=== PATIENT | female | born 1995 | race Two or more races ===

== ENCOUNTER 2024-02-05 18:58 | Emergency (ER) | payer OTHER ==
[~2024-02-05] VITALS: Ht 162.6 cm; Wt 75.0 kg
[2024-02-05 19:07] VITALS: O2SAT 96
[2024-02-05] MEDS ORDERED: BROM118S47 PO (20:48)
[2024-02-05] MEDS ORDERED: NAPR-1164 MT (20:48)
[2024-02-05] MEDS ORDERED: DEXA2TAB MT (20:48)
[2024-02-05] MEDS ORDERED: AZIT250T12 MT (20:56)
[2024-02-05 21:10] VITALS: BP 97/67; PULSE 98; RESP 18; TEMP 37.00296; O2SAT 100
== END 2024-02-05 21:10 | disposition home or self-care (01) ==
LOC: ER 18:58
DX: J06.9 Acute upper respiratory infection, unspecified (principal); Z98.890 Other specified postprocedural states
CPT/HCPCS: 99283